=== PATIENT | male | born 2000 | race Two or more races ===

== ENCOUNTER 2022-08-01 03:53 | Emergency (ER) | payer SELFPAY | END 2022-08-01 05:14 | disposition home or self-care (01) | LOC: CSHERS 03:53 | DX: R07.9 Chest pain, unspecified (principal); M79.10 Myalgia, unspecified site; R20.2 Paresthesia of skin; I10 Essential (primary) hypertension; F17.220 Nicotine dependence, chewing tobacco, uncomplicated | CPT/HCPCS: 93005 ==